=== PATIENT | female | born 1995 | race Caucasian/White ===

== ENCOUNTER 2016-07-29 19:00 | Emergency (ER) | payer OTHER ==
[2016-07-29] MEDS ORDERED: NORMAL SALINE 1000 ML 1,000 ML IV ONE ×2 (20:01→20:03)
[2016-07-29] MEDS ORDERED: DIPHENHYDRAMINE HCL 50 MG/ML VIAL IV ONE ×2 (20:02→22:28)
[2016-07-29] MEDS ORDERED: METOCLOPRAMIDE HCL INJ/PF 10 MG/2 ML SDV IV ONE (20:02)
--- NOTE | 2016-07-29 20:10 | ER Document Report ---
ED GI/ - General Chief Complaint: Vomiting Stated Complaint: VOMITING/POSSIBLE DEHYDRATION Time seen by provider: 20:00 Notes: Patient is a 21 year old female that comes emergency Department for chief complaint of vomiting, she states she is 6 weeks by last menstrual period, . She states she has had increasing bloating over the past 2 weeks , she states today she has not been able to drink anything and has vomited 7 times. She denies fever, diarrhea, vaginal discharge or bleeding, dysuria, flank pain. She takes no daily medications Prozac. No PMH reported otherwise. TRAVEL OUTSIDE OF THE [place] IN LAST 30 DAYS: No - Related Data Allergies/Adverse Reactions: No Known Allergies Allergy (Verified 02/13/14 08:16) Past Medical History - General Information source: Patient - Social History Smoking Status: Never Smoker Frequency of alcohol use: None Drug Abuse: None Lives with: Family Family History: Reviewed & Not Pertinent Renal/ Medical History: Denies: Hx Peritoneal Dialysis GI Medical History: Reports: Hx Gastroesophageal Reflux Disease Musculoskeltal Medical History: Reports Hx Musculoskeletal Deformity, Reports Hx Musculoskeletal Trauma Psychiatric Medical History: Reports: Hx Anxiety Traumatic Medical History: Reports: Hx Fractures Past Surgical History: Reports: Hx Adenoidectomy, Hx Tonsillectomy - Immunizations Immunizations up to date: Yes Hx Diphtheria, Pertussis, Tetanus Vaccination: Yes Review of Systems - Review of Systems Constitutional: No symptoms reported EENT: No symptoms reported Cardiovascular: No symptoms reported Respiratory: No symptoms reported Gastrointestinal: See HPI Genitourinary: No symptoms reported Female Genitourinary: See HPI Musculoskeletal: No symptoms reported Skin: No symptoms reported Hematologic/Lymphatic: No symptoms reported Neurological/Psychological: No symptoms reported Physical Exam - Vital signs Vitals: Temp Pulse Resp BP Pulse Ox 98.3 F 90 16 117/54 L 100 07/29/16 19:02 07/29/16 19:02 07/29/16 19:02 07/29/16 19:02 07/29/16 19:02 Interpretation: Normal - General General appearance: Appears well, Alert In distress: None - Patient is alert and generally well-appearing - HEENT Head: Normocephalic, Atraumatic Eyes: Normal Conjunctiva: Normal Extraocular movements intact: Yes Eyelashes: Normal Pupils: PERRL Nasal: Normal Mouth/Lips: Normal Mucous membranes: Dry - Very dry lips and dry mucous membranes Pharynx: Normal Neck: Normal - Respiratory Respiratory status: No respiratory distress Chest status: Nontender Breath sounds: Normal Chest palpation: Normal - Cardiovascular Rhythm: Regular. No: Tachycardia Heart sounds: Normal auscultation, S1 appreciated, S2 appreciated Murmur: No - Abdominal Inspection: Normal Distension: No distension Bowel sounds: Normal Tenderness: Nontender. No: Tender - Completely benign and nontender abdomen Organomegaly: No organomegaly - Back Back: Normal, Nontender - Extremities General upper extremity: Normal inspection, Nontender, Normal color, Normal ROM , Normal temperature General lower extremity: Normal inspection, Nontender, Normal color, Normal ROM , Normal temperature, Normal weight bearing. No: Maira's sign - Neurological Neuro grossly intact: Yes Cognition: Normal Orientation: AAOx4 [place] Coma Scale Eye Opening: Spontaneous [place] Coma Scale Verbal: Oriented [place] Coma Scale Motor: Obeys Commands [place] Coma Scale Total: 15 Speech: Normal Motor strength normal: LUE, RUE, LLE, RLE Sensory: Normal - Psychological Associated symptoms: Normal affect, Normal mood - Skin Skin Temperature: Warm Skin Moisture: Dry Skin Color: Normal Course - Re-evaluation Re-evalutation: Patient was given Reglan, Benadryl, IV fluid boluses, BMP unremarkable, patient has not been able to urinate yet. Patient is still nauseated, given Phenergan. Patient vomited about 15 minutes after getting Phenergan, however afterward she felt much improved, she states she feels like the Phenergan has started to work , she was able to tolerate by mouth fluids without difficulty. Patient provided urinalysis, urinalysis nonspecific with more squamous epithelials than white blood cells. gave proof of information, provided with Phenergan , patient states she is ready to leave, discussed follow-up with the health department and then [employer], discussed return precautions, patient states understanding and agreement. - Vital Signs Vital signs: Temp Pulse Resp BP Pulse Ox 98.3 F 79 16 105/55 L 99 07/29/16 19:03 07/30/16 00:01 07/29/16 19:03 07/30/16 00:01 07/30/16 00:01 - Laboratory Result Diagrams: 07/29/16 20:35 Laboratory results interpreted by me: 07/29/16 07/29/16 07/29/16 20:35 23:10 23:10 Total Protein 6.2 L Albumin 3.4 L Urine Ketones 80 H Urine Blood SMALL H Ur Leukocyte Esterase SMALL H Urine HCG, Qual POSITIVE H Discharge - Discharge Clinical Impression: Vomiting affecting , Dehydration Condition: Stable Disposition: HOME, SELF-CARE Additional Instructions: Continue to rehydrate. Take Phenergan if needed for nausea. Diphenhydramine is safe in and can help with nausea as well. Take vitamins. Follow up with [employer]. Return to the emergency department for any concerning or worsening symptoms. Prescriptions: Promethazine HCl [Phenergan 25 mg Tablet] 1 - 2 tab PO Q6H PRN #30 tablet PRN Reason:
[2016-07-29 21:02] LABS: ALANINE AMINOTRANSFERASE 28 U/L (9-52); ALBUMIN 3.4 g/dL (3.5-5.0); ALKALINE PHOSPHATASE 56 U/L (38-126); ANION GAP 11 (5-19); ASPARTATE AMINO TRANSFERASE 19 U/L (14-36); BILIRUBIN,DIRECT 0.2 mg/dL (0.0-0.4); BILIRUBIN,TOTAL 0.5 mg/dL (0.2-1.3); BLOOD UREA NITROGEN 9 mg/dL (7-20); CALCIUM 9.1 mg/dL (8.4-10.2); CARBON DIOXIDE 23 mmol/L (22-30); CHLORIDE 104 mmol/L (98-107); CREATININE RESULT 0.61 mg/dL (0.52-1.25); GLUCOSE 80 mg/dL (75-110); POTASSIUM 3.9 mmol/L (3.6-5.0); SODIUM 137.7 mmol/L (137-145); TOTAL PROTEIN 6.2 g/dL (6.3-8.2)
[2016-07-29] MEDS ORDERED: PROMETHAZINE HCL 25 MG TABLET PO ONE (22:21)
[2016-07-29 23:46] LABS: APPEARANCE,URINE SLIGHTLY-CLOUDY; BILIRUBIN,URINE NEGATIVE (NEGATIVE); GLUCOSE, URINE NEGATIVE (NEGATIVE); KETONES,URINE 80 mg/dL (NEGATIVE); LEUKOCYTE ESTERASE,URINE SMALL (NEGATIVE); NITRITE,URINE NEGATIVE (NEGATIVE); PROTEIN,URINE NEGATIVE (NEGATIVE); URINE SPECIFIC GRAVITY 1.018; UROBILINOGEN,URINE NEGATIVE mg/dL (<2.0)
[2016-07-30 00:16] VITALS: BP 105/55
== END 2016-07-30 00:16 | disposition home or self-care (01) ==
LOC: ER 19:00
DX: O21.9 Vomiting of pregnancy, unspecified (principal); E86.0 Dehydration; Z3A.01 Less than 8 weeks gestation of pregnancy
CPT/HCPCS: 96376; 99283; 96361; 96374; 96375; 36415; 87086; 81025; 87088; 80053; 81001; J1200; J2765; J7030